=== PATIENT | male | born 2000 | race Caucasian/White ===

== ENCOUNTER 2018-10-14 07:43 | Day surgery (SDC) | payer BC ==
[~2018-10-14] VITALS: Ht 165.1 cm; Wt 49.7 kg
[2018-10-14] MEDS ORDERED: ALBU90OI (08:28)
[2018-10-14] MEDS ORDERED: Prevacid15 M2 (08:29)
--- NOTE | 2018-10-14 12:18 | NUR ---
10/14/18 1218 Jenny Jimenez SMALL, RED FLAT BLOTCHES VISIBLE ACROSS PT'S CHEST, ABDOMEN, AND ARMS. DR MEREDITH AND DR DELAROSA AWARE. PT DENIES ITCHING, SOB, ETC. LUNGS CTA. NO FURTHER ORDERS AT THIS TIME. WILL CONTINUE TO MONITER.
== END 2018-10-14 13:01 | disposition home or self-care (01) ==
LOC: ORSCSDS 07:43
PROVIDERS: Otolaryngology
PROC: 09TL0ZZ Resection of Nasal Turbinate, Open Approach (ICD-10-PCS; principal; 2018-10-14 09:00)
PROC: 09BM0ZZ Excision of Nasal Septum, Open Approach (ICD-10-PCS; principal; 2018-10-14 09:00)
DX: J34.2 Deviated nasal septum (principal); J34.3 Hypertrophy of nasal turbinates; J45.909 Unspecified asthma, uncomplicated; K21.9 Gastro-esophageal reflux disease without esophagitis; Z79.899 Other long term (current) drug therapy
CPT/HCPCS: J1100; J2250; J2405; J2704; J3010; J7120